=== PATIENT | female | born 1995 | race Caucasian/White ===

== ENCOUNTER 2017-07-30 02:09 | Emergency (ER) | payer SELFPAY ==
[~2017-07-30] VITALS: Ht 165.1 cm; Wt 64.0 kg
[2017-07-30] MEDS ORDERED: IBUPROFEN 600MG TABLET PO ONE (06:30)
[2017-07-30 06:35] VITALS: BP 115/77
== END 2017-07-30 07:07 | disposition home or self-care (01) ==
LOC: ER 02:09
DX: R51 Headache (principal); J45.909 Unspecified asthma, uncomplicated; F17.200 Nicotine dependence, unspecified, uncomplicated; F43.10 Post-traumatic stress disorder, unspecified; F12.10 Cannabis abuse, uncomplicated; F41.9 Anxiety disorder, unspecified; Z88.2 Allergy status to sulfonamides
CPT/HCPCS: 99283

== ENCOUNTER 2017-07-30 08:12 | Emergency (ER) | payer SELFPAY ==
[~2017-07-30] VITALS: Ht 165.1 cm; Wt 64.0 kg
[2017-07-30 08:18] VITALS: BP 134/79
== END 2017-07-30 10:23 | disposition left against medical advice (07) ==
LOC: ER 08:36
DX: R45.851 Suicidal ideations (principal); Z53.21 Procedure and treatment not carried out due to patient leaving prior to being seen by health care provider